=== PATIENT | female | born 1975 | race Caucasian/White ===

== ENCOUNTER → 2019-11-29 12:40 | Outpatient (CLI) | payer OTHER, SELFPAY ==
--- NOTE | ~2019-11-29 | XR_ITS ---
EXAMINATION: XR chest 2V EXAM DATE: 11/29/2019 12:54 INDICATION: Cough and wheezing. TECHNIQUE: Frontal and lateral projections of the chest obtained and reviewed. Comparison is made to prior examination from 08/02/2019. FINDINGS: There is moderate hyperinflation. Left apical surgical clips. The lungs are clear. There are no pleural effusions. The cardiomediastinal silhouette is within normal limits. There is no pne umothorax suspected. The bones and soft tissues are unremarkable. IMPRESSION: 1. No acute cardiopulmonary findings. 2. Hyperinflation. Reviewed, dictated and finalized at location B. CONTROLLER
== END ==
PROVIDERS: PCP Family Medicine; Visit Provider Family Medicine
DX: F17.200 Nicotine dependence, unspecified, uncomplicated (principal); R91.8 Other nonspecific abnormal finding of lung field
CPT/HCPCS: 71046

== ENCOUNTER 2019-12-20 10:31 | Outpatient (CLI) | payer OTHER, SELFPAY | END 2019-12-20 10:32 | disposition home or self-care (01) | LOC: ANHLAB 10:32 | PROVIDERS: PCP Family Medicine; Visit Provider Internal Medicine Hematology & Oncology | DX: D72.1 Eosinophilia (principal) | CPT/HCPCS: 36415; 82607; 83520; 88184 ==

== ENCOUNTER → 2020-02-20 12:07 | Outpatient (CLI) | payer OTHER, SELFPAY ==
--- NOTE | ~2020-02-20 | XR_ITS ---
EXAMINATION: XR chest 2V 02/20/2020 12:32 INDICATION: Cough. Nicotine dependence. PROCEDURE: 2 view chest COMPARISON: 11/29/2019 FINDINGS: The lungs are clear. The cardiomediastinal silhouette is within normal limits. There are no pleural effusions. There is no pneumothorax suspected. There are surgical changes consistent wit h left upper lobectomy. There are breast implants. IMPRESSION: 1: NO ACUTE CARDIOPULMONARY DISEASE. Reviewed, dictated and finalized at location A.
== END ==
PROVIDERS: PCP Family Medicine; Visit Provider Family Medicine
DX: R05 Cough (principal)
CPT/HCPCS: 71046

== ENCOUNTER 2020-09-25 11:35 | Outpatient (CLI) | payer OTHER, SELFPAY ==
[2020-09-28 07:12] LABS: Amphetamines NEGATIVE ng/mL (<500); Barbiturates NEGATIVE ng/mL (<300); Benzodiazepines NEGATIVE ng/mL (<100); Cocaine Metabolite NEGATIVE ng/mL (<150); Marijuana Metabolite NEGATIVE ng/mL (<20); Methadone Metabolite NEGATIVE ng/mL (<100); Opiates NEGATIVE ng/mL (<100); Oxidant NEGATIVE mcg/mL (<200); pH 7.4 (4.5-9.0)
== END 2020-09-25 11:36 | disposition home or self-care (01) ==
LOC: ANHBWCLAB 11:36
PROVIDERS: PCP Family Medicine; Visit Provider Family Medicine
DX: Z02.1 Encounter for pre-employment examination (principal)
CPT/HCPCS: 80299

== ENCOUNTER 2021-07-14 11:20 | Outpatient (CLI) | payer OTHER, SELFPAY ==
[2021-07-14 18:22] LABS: Hematocrit 38.7 % (37.0-47.0); Hemoglobin 12.6 g/dL (12.0-15.0); Mean Corpuscular HGB Conc 32.6 g/dl (32-36); Mean Corpuscular Hemoglobin 31.3 pg (26-34); Mean Platelet Volume 8.7 fl (7.4-10.4); Platelet Count Result 496 k/mm3 (150-375); Red Blood Count 4.03 M/mm3 (4.2-5.4); Red Cell Distribution Width 15.8 % (11.5-14.5); White Blood Count 8.1 K/mm3 (4.5-10.0)
[2021-07-14 18:32] LABS: Alanine Aminotransferase 16 U/L (4-35); Albumin Level 5.2 g/dL (3.5-5.1); Alkaline Phosphatase 77 U/L (38-126); Anion Gap 14 mmol/L (8-16); Aspartate Amino Transferase 24 U/L (14-36); Bilirubin,Total 0.2 mg/dL (0.2-1.3); Blood Urea Nitrogen 17 mg/dL (7-17); Calcium 10.3 mg/dL (8.4-10.2); Carbon Dioxide 19 mmol/L (22-30); Chloride 102 mmol/L (98-107); Cholesterol 186 mg/dL (0-200); Estimated Glomerular Filt Rate > 60; Glucose 100 mg/dL (65-110); HDL Direct 100 mg/dL; Potassium 4.6 mmol/L (3.4-5.0); Sodium 135 mmol/L (137-145); Triglycerides 61 mg/dL (<150)
[2021-07-14 18:43] LABS: LDL Cholesterol Direct 86 mg/dL
[2021-07-18 07:01] LABS: Progesterone 9.7 ng/mL (***)
[2021-07-21 01:35] LABS: Testosterone Free 1.1 pg/mL (0.1-6.4); Testosterone Total 18 ng/dL (2-45)
[2021-08-02 09:45] LABS: Estrogen 280.8
== END 2021-07-14 11:21 | disposition home or self-care (01) ==
LOC: ANHBWCLAB 11:22
PROVIDERS: PCP Family Medicine; Visit Provider Family Medicine
DX: F41.9 Anxiety disorder, unspecified (principal); F90.9 Attention-deficit hyperactivity disorder, unspecified type; G89.4 Chronic pain syndrome; Z00.00 Encounter for general adult medical examination without abnormal findings; B37.0 Candidal stomatitis; E83.42 Hypomagnesemia; F32.9 Major depressive disorder, single episode, unspecified; N93.9 Abnormal uterine and vaginal bleeding, unspecified
CPT/HCPCS: 36415; 80053; 80061; 82672; 83735; 84144; 84402; 84403; 84443; 85027

== ENCOUNTER 2021-08-30 07:59 | Outpatient (CLI) | payer OTHER, SELFPAY ==
[2021-08-30 19:16] LABS: Add Urine Microscopic? YES; Appearance Urine Cloudy (Clear); Bacteria Urine Trace /hpf; Bilirubin Urine Negative (Negative); Blood Urine Negative (Negative); Budding Yeast Urine Present /hpf; Color Urine Yellow (Yellow); Glucose Urine UA Negative (Negative); Ketones Urine Negative (Negative); Leukocyte Esterase Ur Negative LEU/UL (NEGATIVE); Nitrate Urine Negative (Negative); Protein Urine Negative (Negative); RBC Urine 0-2 /hpf (0-2); Squamous Epithelial Cell Urine Moderate /hpf (Few); Urobilinogen Urine Negative mg/dL (<2.0); WBC Clumps Urine Present /HPF; WBC Urine 0-3 /hpf (0-3)
== END 2021-08-30 08:00 | disposition home or self-care (01) ==
LOC: ANHBWCLAB 08:01
PROVIDERS: PCP Family Medicine; Visit Provider Family Medicine
DX: R10.9 Unspecified abdominal pain (principal)
CPT/HCPCS: 81001; 87491; 87591; 87661

== ENCOUNTER 2022-03-22 21:55 | Emergency (ER) | payer OTHER, SELFPAY ==
--- NOTE | ~2022-03-22 | XR_ITS ---
EXAMINATION: XR chest 1V portable Exam Date/Time: 03/22/2022 22:25 CDT HISTORY: tachycardia Comparison: 02/20/2020. RESULT: Lines, tubes, and devices: Suture material in the left apex. Lungs and pleura: Clear. Cardiomediastinal silhouette: Stable cardiomediastinal silhouette. Other: No acute osseous or upper abdominal finding. IMPRESSION: No acute cardiopulmonary process. Reviewed, dictated and finalized at location K.
[2022-03-22 22:00] VITALS: BP 135/90; PULSE 115; RESP 21; TEMP 37; O2SAT 99
--- NOTE | 2022-03-22 22:05 | ECG_ITS ---
Measurements Intervals [place] Rate: 103 P: 60 IN: 150 QRS: 14 QRSD: 90 T: 32 QT: 338 QTc: 443 Interpretive Statements SINUS TACHYCARDIA POSSIBLE RIGHT VENTRICULAR CONDUCTION DELAY [RSR (QR) IN V1/V2] ABNORMAL RHYTHM ECG NO PREVIOUS ECG AVAILABLE FOR COMPARISON Electronically Signed On 03-23-2022 7:26:28 CDT by Ezra Hernandez M.D.
[2022-03-22] MEDS: LORazepam INJ (*CRX) 2 MG/ML VIAL 1 MG IV PUSH (22:49)
[2022-03-22] MEDS: LACTATED RINGERS 1,000 ML 999 ML IV CONT (22:49)
[2022-03-22 23:01] LABS: Acetaminophen < 10 ug/mL (10-30); Ethanol < 10 mg/dL (<10); Salicylate < 1.0 mg/dL (2-20)
[2022-03-22 23:02] LABS: Anion Gap 10 mmol/L (8-16); Blood Urea Nitrogen 11 mg/dL (7-17); Calcium 9.8 mg/dL (8.4-10.2); Carbon Dioxide 24 mmol/L (22-30); Chloride 105 mmol/L (98-107); Estimated CRCL calculation 79 ml/min; Estimated Glomerular Filt Rate > 60; Glucose 129 mg/dL (65-110); Potassium 3.9 mmol/L (3.4-5.0); Sodium 139 mmol/L (137-145)
[2022-03-22 23:03] LABS: Basophils Absolute Auto 0.1 K/mm3 (0.0-0.1); Basophils Percent Auto 0.5 % (0.2-1.2); Eosinophils Percent Auto 0.4 % (0-4.4); Hemoglobin 12.6 g/dL (12.0-15.0); Immature Granulocyte Absolute 0.02 K/mm3 (0.00-0.031); Immature Granulocyte Percent A 0.2 % (0-0.5); Lymphocytes Percent Auto 17.4 % (18.3-44.2); Mean Corpuscular HGB Conc 33.2 g/dl (32-36); Mean Corpuscular Hemoglobin 31.6 pg (26-34); Mean Corpuscular Volume 95.2 fl (80-100); Mean Platelet Volume 8.4 fl (7.4-10.4); Monocytes Absolute Auto 1.2 K/mm3 (0.1-0.6); Monocytes Percent Auto 11.7 % (2.6-8.5); Neutrophils Absolute Auto 7.3 K/mm3 (1.3-6.7); Neutrophils Percent Auto 69.8 % (45.5-73.1); Platelet Count Result 530 k/mm3 (150-375); Red Blood Count 3.99 M/mm3 (4.2-5.4); Red Cell Distribution Width 14.9 % (11.5-14.5); White Blood Count 10.4 K/mm3 (4.5-10.0)
--- NOTE | 2022-03-22 23:13 | ED.ANXIETY ---
HPI - Anxiety General Chief Complaint: Anxiety Stated Complaint: SOB/PANIC ATTACK/ANXIETY Time Seen by Provider: 03/22/22 22:04 History of Present Illness HPI narrative: 46-year-old female presenting with what she feels is an anxiety attack that started about an hour ago, she states it feels like usual anxiety attack with some chest discomfort, difficulty breathing, and she feels trembley and weak all over, she states that there has been a lot of stuff going on recently in her life that has been stressing her out and making things worse, she is currently on sertraline and has been taking it for the most part, she states she did have a few drinks earlier, and denies any drug use other than DMT. Related Data Home Medications Medication Instructions Recorded Confirmed nicotine 21 mg/24 hr daily 1 patch transdermal DAILY 08/30/21 10/20/21 transdermal patch Allergies Allergy/AdvReac Type Severity Reaction Status Date / Time Penicillins Allergy Rash Verified 03/22/22 22:11 Review of Systems Review of Systems: CONST: No fever. HEENT: No sore throat C/V: Discomfort RESP: Difficulty breathing GI: Nausea : No dysuria. M/S: Tremors. SKIN: No rash. NEURO: [No headache or focal numbness or weakness] PSYCH: Anxiety PMFSH Past Medical History Medical History Anxiety Low vitamin D level Surgical History Surgical History History of lung surgery Family History Family History Grandparent Diabetes mellitus Family history of cardiovascular disease Family history of malignant neoplasm Mother Diabetes mellitus Sibling Family history of mental disorder Family history of gynecological problem Grandparent Cancer Social History Social History Smoking packs per day: 0.5 Smoking cigarettes per day: 10.0 Years smoked: 27 Smoking pack-years: 13.50 Smoking status: Current every day smoker Alcohol intake: current Drinks per week: 2 Substance use: former Substance use type: methamphetamine Exam Narrative: EXAMINATION OF ORGAN SYSTEMS/BODY AREAS: Constitutional: Vital signs per nursing GENERAL: Appears quite anxious HEAD: Normal with no signs of head trauma. EYES: EOMI, conjunctiva normal ENT: Hearing grossly intact LUNGS: Tachypneic HEART: Tachycardic ABD: No distention EXT: Normal range of motion SKIN: Abrasions on arms NEURO: [Alert and oriented x 3. No gross focal sensory or strength deficits.] PSYCH: Anxious, tearful affect Course Vital Signs Vital signs: Vital Signs Temperature 98.6 F 03/22/22 22:00 Pulse Rate 115 H 03/22/22 22:00 Respiratory Rate 21 H 03/22/22 22:00 Blood Pressure 135/90 03/22/22 22:00 Pulse Oximetry 99 03/22/22 22:00 Oxygen Delivery Room Air 03/22/22 22:00 Temperature 98.6 F 03/22/22 22:00 Pulse Rate 94 03/23/22 01:55 Respiratory Rate 16 03/23/22 01:55 Blood Pressure 108/65 03/23/22 01:55 Pulse Oximetry 95 03/23/22 01:55 Oxygen Delivery Room Air 03/22/22 22:00 MDM - Anxiety MDM Narrative Medical decision making narrative: 46-year-old female presenting with what she feels is an anxiety attack, vital signs notable for tachycardia, on exam the patient does appear quite anxious but clear to auscultation bilaterally, normal neurologic exam with anxious affect, I suspect likely anxiety attack, less likely any cardiac abnormality, less likely alcohol withdrawal without prior history of this, but I will give patient ativan and fluids and obtain an EKG and chest x-ray for screening. She tells me that she is having thoughts about hurting herself also with a plan for overdose, so I will obtain labs for medical clearance. EKG and chest xr normal. Labs notable for +amphetamines. Repeat vitals now normal. She is medically sta
[2022-03-22] MEDS: NICOTINE (*PBKC) 21 MG PATCH 1 PATCH TRANSDERM (23:17)
[2022-03-22] MEDS: LORazepam INJ (*CRX) 2 MG/ML VIAL IV PUSH (23:48)
[2022-03-22 23:59] VITALS: BP 128/77; PULSE 100; RESP 25; O2SAT 99
[2022-03-23] VITALS (7 sets, daily range): BP systolic 105–113; BP diastolic 61–77; PULSE 85–100; RESP 14–20; TEMP 36.1; O2SAT 95–99
[2022-03-23 00:39] LABS: Appearance Urine Clear (Clear); Bilirubin Urine Negative (Negative); Blood Urine Negative (Negative); Color Urine Yellow (Yellow); Glucose Urine UA Negative (Negative); Ketones Urine Trace mg/dL (Negative); Leukocyte Esterase Ur Negative LEU/UL (Negative); Nitrate Urine Negative (Negative); Protein Urine Negative (Negative); Specific Grav Ur 1.015 (1.001-1.035); Urobilinogen Urine 0.2 mg/dL (<2.0)
[2022-03-23 00:48] LABS: Barbiturate Screen Urine Negative (Negative); Benzodiazepines Screen Urine Negative (Negative)
[2022-03-23 00:50] LABS: Add Urine Microscopic? YES; Bacteria Urine 1+ /hpf; Mucus Urine Rare /lpf; RBC Urine 0-2 /hpf (0-2); Squamous Epithelial Cell Urine Rare /hpf (Few); Transitional Epi Cells Urine Rare /hpf (None Seen); WBC Urine 0-3 /hpf
[2022-03-23 00:53] LABS: Cannabinoid Screen Urine Negative (Negative); Cocaine Screen Urine Negative (Negative); Methadone Screen Urine Negative (Negative); Opiate Screen Urine Negative (Negative); Phencyclidine Screen Urine Negative (Negative)
[2022-03-23 01:19] LABS: Amphetamine Screen Urine Positive (Negative)
[2022-03-23 03:01] LABS: SARS-CoV-2 RNA PCR Negative
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
== END 2022-03-23 06:26 | disposition home or self-care (01) ==
PROVIDERS: Emergency Provider Emergency Medicine; PCP Family Medicine
DX: F41.9 Anxiety disorder, unspecified (principal); F19.90 Other psychoactive substance use, unspecified, uncomplicated; R45.851 Suicidal ideations; Z20.822 Contact with and (suspected) exposure to COVID-19; F17.210 Nicotine dependence, cigarettes, uncomplicated; R00.0 Tachycardia, unspecified; R94.31 Abnormal electrocardiogram [ECG] [EKG]
CPT/HCPCS: 36415; 51701; 71045; 80048; 80307; 81001; 81025; 84443; 85025; 93005; 96361; 96374; 96376; 99284; A9270; C9803; J2060; J7120; U0003; U0005

== ENCOUNTER 2022-09-12 18:25 | Emergency (ER) | payer OTHER, SELFPAY ==
--- NOTE | ~2022-09-12 | CT_ITS ---
EXAMINATION: CT abdomen pelvis wo con DATE: 09/12/2022 20:00 INDICATION: abd pain, dark stools TECHNIQUE: Computed tomography (CT) of the abdomen and pelvis was performed without intravenous contr ast. Automated exposure control and iterative reconstruction technique were employed. The dose-length product was 316.40 mGy-cm. COMPARISON: 01/16/2009, images only. FINDINGS: Lower thorax: Bilateral breast augmentation. Right basilar scar/atelectasis. Liver: Normal. Biliary/Gallbladder: Gallbladder is collapsed. No bile duct dilation. Pancreas: No mass or duct dilation. Spleen: Normal. Adrenals:No mass. Kidneys: No mass, stone, or hydronephrosis. GI tract: No small or large bowel dilation. Normal appendix. Mesentery/Peritoneum: No ascites, mass, or free air. Retroperitoneum: No mass. Pelvis: Uterine fibroids.. Soft Tissues: Soft tissues and body wall unremarkable. Bones: No acute osseous finding. IMPRESSION: No acute abdominopelvic process detected. Reviewed, dictated and finalized at location K. SECRETARY
[2022-09-12 18:37] VITALS: BP 120/68; PULSE 80; RESP 18; TEMP 36.2; O2SAT 100
[2022-09-12 18:40] VITALS: BP 120/60; PULSE 80; TEMP 36.2
[2022-09-12] MEDS: KETOROLAC 30 MG/ML VIAL (*BKC) IM (19:51)
[2022-09-12 20:05] LABS: Appearance Urine Clear (Clear); Bilirubin Urine Negative (Negative); Blood Urine Negative (Negative); Glucose Urine UA Negative (Negative); Ketones Urine Negative (Negative); Leukocyte Esterase Ur Negative (Negative); Nitrate Urine Negative (Negative); Protein Urine Negative (Negative); Specific Grav Ur <= 1.005 (1.010-1.020); Urobilinogen Urine 0.2 mg/dL (0.2-1.0)
[2022-09-12 20:06] LABS: Add Urine Microscopic? NO; Color Urine Light Yellow (Yellow)
[2022-09-12 20:17] LABS: Hematocrit 38.3 % (35.0-49.0); Hemoglobin 11.9 g/dL (12.0-15.0); Mean Corpuscular HGB Conc 31.1 g/dL (32.0-36.0); Mean Corpuscular Hemoglobin 30.7 pg (27.0-31.0); Mean Corpuscular Volume 98.7 fL (78.0-102.0); Mean Platelet Volume 8.1 fl (9.2-11.8); Platelet Count Result 439 K/mm3 (150-420); Red Blood Count 3.88 M/mm3 (4.20-5.40); Red Cell Distribution Width 14.6 % (11.6-14.4); White Blood Count 8.8 K/mm3 (4.8-10.8)
[2022-09-12 20:33] LABS: Alanine Aminotransferase 18 U/L (14-59); Albumin Level 4.1 g/dL (3.4-5.0); Alkaline Phosphatase 65 U/L (46-116); Anion Gap 6 mmol/L (8-16); Aspartate Amino Transferase 12 U/L (15-37); Bilirubin,Total 0.1 mg/dL (0.00-1.00); Blood Urea Nitrogen 10 mg/dL (7-18); Calcium 9.3 mg/dL (8.5-10.1); Carbon Dioxide 31 mmol/L (21-32); Chloride 105 mmol/L (98-108); Estimated CRCL calculation 84 ml/min; Estimated Glomerular Filt Rate > 60; Glucose 95 mg/dL (70-99); Lipase 212 U/L (73-393); Osmolality Calculated 293 mOsm/kg (285-295); Potassium 4.7 mmol/L (3.5-5.1); Sodium 142 mmol/L (136-145); Total Protein 7.5 g/dL (6.4-8.2)
[2022-09-12 20:52] LABS: Band Neutrophils Percent 0 % (0-6); Basophils Absolute Manual 0.08 K/mm3 (0-0.1); Basophils Percent Manual 1 % (0-1); Eosinophils Percent Manual 16 % (1-6); Lymphocytes Absolute Manual 2.28 K/mm3 (1.1-4.5); Lymphocytes Percent Manual 26 % (18-44); Monocytes Absolute Manual 0.88 K/mm3 (0.1-0.90); Monocytes Percent Manual 10 % (3-9); Neutrophils Absolute Manual 4.13 K/mm3 (1.7-7.2); Neutrophils Percent Manual 47 % (46-73); Platelet Estimate Adequate (Adequate)
[2022-09-12 23:28] VITALS: BP 106/67; PULSE 69; RESP 14; O2SAT 100
--- NOTE | 2022-09-12 23:49 | ED.GENADULT ---
HPI - General Adult General Chief complaint: Unspecified Stated complaint: possible uti and sinus infection Time Seen by Provider: 09/12/22 18:29 Source: patient Mode of arrival: ambulatory Limitations: no limitations History of Present Illness complaint: abdominal pain, nausea, diarrhea Onset (ago): day(s) (1) Location: abdomen Radiation: non-radiation Severity: mild Severity scale (1-10): 3 Quality: aching and dull Pain Consistency: constant Exacerbating factors: none Associated symptoms: nausea/vomiting Related Data Home Medications Medication Instructions Recorded Confirmed nicotine 21 mg/24 hr daily 1 patch transdermal DAILY 08/30/21 10/20/21 transdermal patch Allergies Allergy/AdvReac Type Severity Reaction Status Date / Time Penicillins Allergy Rash Verified 03/22/22 22:11 Review of Systems Review of Systems: All systems reviewed & are unremarkable except as noted in HPI and below Constitutional: Constitutional: Reports no additional constitutional complaints Eyes: Eyes: Reports no additional eye complaints ENT: Reports system reviewed and no additional complaints, except as documented Cardiovascular: Cardiovascular: Reports no additional cardiovascular complaints Respiratory: Respiratory: Reports no additional respiratory complaints Gastrointestinal: Gastrointestinal: Reports no additional gastrointestinal complaints Genitourinary: Genitourinary: Reports no additional female genitourinary complaints Musculoskeletal: Musculoskeletal: Reports no additional musculoskeletal complaints Integumentary/Breasts: Skin/Breast: Reports system reviewed and no additional complaints, except as docu Neurologic: Reports system reviewed and no additional complaints, except as documented Psychiatric: Psychiatric: Reports no additional psychiatric complaints Endocrine: Endocrine: Reports no additional endocrine complaints Hematologic/Lymphatic: Hematologic/Lymphatic: Reports no additional hematologic/lymphatic complaints Allergic/Immunologic: Allergic/Immunologic: Reports no additional allergic/immunologic complaints [facility] Past Medical History Medical History Anxiety Gastroenteritis Low vitamin D level Surgical History Surgical History History of lung surgery Family History Family History Grandparent Diabetes mellitus Family history of cardiovascular disease Family history of malignant neoplasm Mother Diabetes mellitus Sibling Family history of mental disorder Family history of gynecological problem Grandparent Cancer Social History Social History Smoking packs per day: 0.5 Smoking cigarettes per day: 10.0 Years smoked: 27 Smoking pack-years: 13.50 Smoking status: Current every day smoker Alcohol intake: current Drinks per week: 2 Substance use: former Substance use type: methamphetamine Exam Const: General: no acute distress and well nourished Nutritional Appearance: well nourished Orientation/consciousness: patient oriented x3 Limitations: no limitations HENMT: Head: normal to inspection Ears: external ears normal, TM's normal bilaterally and EAC's normal Face/Nose/Sinus: Normal external nose present, Normal nares present, normal facial exam and sinuses nontender Face and sinus: normal facial exam and sinuses nontender Mouth: Yes Normal oral and palatal mucosa present and Yes moist mucous membranes Teeth and gingiva: dentition normal Throat: posterior oropharynx normal Eyes: Conjunctivae: conjunctivae normal Pupils: Equal, round and reactive pupils present EOM: EOMs intact bilaterally Neck: Neck: normal visual inspection, no lymphadenopathy and no meningeal signs Chest: Chest palpation & inspection: normal inspection of the
[2022-09-13 00:08] VITALS: BP 108/71; PULSE 73; RESP 16; O2SAT 97
== END 2022-09-13 00:15 | disposition home or self-care (01) ==
PROVIDERS: Emergency Provider Emergency Medicine
DX: K52.9 Noninfective gastroenteritis and colitis, unspecified (principal); B34.9 Viral infection, unspecified
CPT/HCPCS: 36415; 74176; 80053; 81003; 83690; 85025; 96372; 99284; J1885

== ENCOUNTER 2023-04-07 01:30 | Emergency (ER) | payer OTHER, SELFPAY ==
--- NOTE | ~2023-04-07 | CT_ITS ---
CT of the Abdomen and Pelvis: Indication: Abdominal pain Technique: 2.5 mm axial scans were obtained through the abdomen and pelvis following intravenous adm inistration of 100 cc of Omnipaque 350. Dose reduction technique was used on this scan by utilizing a utomated exposure control and iterative reconstruction technique. The dose-length product (DLP) was 3 51.44 mGy-cm. COMPARISON: 09/12/2022 Findings: Scans through the lung bases are unremarkable. The liver, spleen, pancreas, gallbladder, adrenals and kidneys are within normal limits. No evidence of aortic aneurysm. No lymphadenopathy. No bowel obstruction or bowel wall thickening. There is no evidence to suggest acute appendicitis. Images through the pelvis were performed. Urinary bladder unremarkable. Enlarged, multi fibroid uteru s present, extending superiorly to the level of the umbilicus. No other adnexal mass seen. No ascites . Impression: Enlarged multi fibroid uterus, as detailed above. No acute abnormality evident otherwise. Reviewed, dictated and finalized at [facility]. Impression: Enlarged multi fibroid uterus, as detailed above. No acute abnormality evident otherwise.
[2023-04-07 01:37] VITALS: BP 137/82; PULSE 113; RESP 18; TEMP 37; O2SAT 100
[2023-04-07 01:41] LABS: Appearance Urine Clear (Clear); Bilirubin Urine Negative (Negative); Blood Urine Negative (Negative); Color Urine Light Yellow (Yellow); Glucose Urine UA Negative (Negative); Ketones Urine Negative (Negative); Leukocyte Esterase Ur Negative LEU/UL (Negative); Nitrate Urine Negative (Negative); Protein Urine Negative (Negative); Urobilinogen Urine 0.2 mg/dL (0.2-1.0)
[2023-04-07 01:50] LABS: Basophils Absolute Auto 0.03 K/mm3 (0.00-0.10); Basophils Percent Auto 0.2 % (0.0-1.0); Eosinophils Absolute Auto 0.08 K/mm3 (0.02-0.50); Eosinophils Percent Auto 0.6 % (1.0-6.0); Hematocrit 39.1 % (35.0-49.0); Hemoglobin 12.8 g/dL (12.0-15.0); Immature Granulocyte Absolute 0.06 K/mm3 (0.00-0.00); Immature Granulocyte Percent A 0.4 % (0.0-0.0); Lymphocytes Absolute Auto 1.64 K/mm3 (1.10-4.50); Lymphocytes Percent Auto 11.3 % (18.0-42.0); Mean Corpuscular HGB Conc 32.7 g/dL (32.0-36.0); Mean Corpuscular Hemoglobin 32.1 pg (27.0-31.0); Mean Platelet Volume 8.5 fl (9.2-11.8); Monocytes Absolute Auto 1.25 K/mm3 (0.10-0.90); Monocytes Percent Auto 8.6 % (2.0-11.0); Neutrophils Absolute Auto 11.5 K/mm3 (1.7-7.2); Neutrophils Percent Auto 78.9 % (50.0-70.0); Platelet Count Result 410 K/mm3 (150-420); Red Blood Count 3.99 M/mm3 (4.20-5.40); Red Cell Distribution Width 13.2 % (11.6-14.4); White Blood Count 14.5 K/mm3 (4.8-10.8)
[2023-04-07 01:50] LABS: Add Urine Microscopic? NO
[2023-04-07 02:05] LABS: Alanine Aminotransferase 19 U/L (14-59); Albumin Level 4.1 g/dL (3.4-5.0); Alkaline Phosphatase 59 U/L (46-116); Anion Gap 12 mmol/L (8-16); Aspartate Amino Transferase 17 U/L (15-37); Bilirubin,Total 0.5 mg/dL (0.00-1.00); Blood Urea Nitrogen 10 mg/dL (7-18); Calcium 9.3 mg/dL (8.5-10.1); Carbon Dioxide 25 mmol/L (21-32); Chloride 97 mmol/L (98-108); Estimated Glomerular Filt Rate > 60; Glucose 145 mg/dL (70-99); Lipase 37 U/L (16-77); Osmolality Calculated 280 mOsm/kg (285-295); Partial Thromboplastin Time 27.2 SEC (23.90-30.70); Potassium 3.9 mmol/L (3.5-5.1); Prothrombin Time 10.5 Seconds (9.50-12.10); Sodium 134 mmol/L (136-145); Total Protein 7.2 g/dL (6.4-8.2)
[2023-04-07] MEDS: SODIUM CHLORIDE 0.9% IV 1,000 ML 999 ML IV CONT (02:08)
[2023-04-07] MEDS: ONDANSETRON INJ 4 MG/2 ML VIAL IV PUSH (02:08)
[2023-04-07] MEDS: KETOROLAC 30 MG/ML VIAL (*BKC) IV PUSH (02:08)
[2023-04-07 03:24] VITALS: BP 118/52; PULSE 89; RESP 18; O2SAT 98
--- NOTE | 2023-04-07 03:24 | ED.ABDPAIN ---
HPI - Abdominal Pain General Chief Complaint: Abdominal Pain Stated Complaint: Lower back pain Time Seen by Provider: 04/07/23 01:33 Source: patient Mode of arrival: ambulatory Limitations: no limitations History of Present Illness HPI narrative: this is 47-year-old female that presents with some mild abdominal discomfort with some no nausea vomiting no dysuria does have some flank discomfort left no uterine bleeding no fever chills does have a history of pancreatitis vitals are stable afebrile. MD elicited complaint: abdominal pain Severity: mild Quality: aching Related Data Home Medications Medication Instructions Recorded Confirmed nicotine 21 mg/24 hr daily 1 patch transdermal DAILY 08/30/21 10/20/21 transdermal patch Allergies Allergy/AdvReac Type Severity Reaction Status Date / Time Penicillins Allergy Rash Verified 03/22/22 22:11 Review of Systems Review of Systems: All systems reviewed & are unremarkable except as noted in HPI and below PMFSH Past Medical History Medical History Anxiety Gastroenteritis Low vitamin D level Surgical History Surgical History History of lung surgery Family History Family History Grandparent Diabetes mellitus Family history of cardiovascular disease Family history of malignant neoplasm Mother Diabetes mellitus Sibling Family history of mental disorder Family history of gynecological problem Grandparent Cancer Social History Social History Smoking packs per day: 0.5 Smoking cigarettes per day: 10.0 Years smoked: 27 Smoking pack-years: 13.50 Smoking status: Current every day smoker Alcohol intake: current Drinks per week: 2 Substance use: former Substance use type: methamphetamine Exam Const: General: healthy appearing Nutritional Appearance: well nourished Limitations: no limitations HENMT: Head: normal to inspection Neck: Neck: normal visual inspection Chest: Chest palpation & inspection: normal inspection of the chest Cardio: Rate: regular rate Rhythm: regular rhythm GI: GI Palp: Yes Soft to palpation Auscultation: normal bowel sounds Skin: General skin exam: normal color Rashes: no rashes Wounds: no wounds Neuro: Cranial nerves: Yes Nystagmus not present Extrem: General: normal to inspection Course Course Emergency Course: Labs reviewed with patient had a mildly elevated white cell count and had a CT scan performed which showed 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 Vital Signs Vital signs: Vital Signs Temperature 37.0 C 04/07/23 01:37 Pulse Rate 113 H 04/07/23 01:37 Respiratory Rate 18 04/07/23 01:37 Blood Pressure 137/82 04/07/23 01:37 Pulse Oximetry 100 04/07/23 01:37 Oxygen Delivery Room Air 04/07/23 01:37 Temperature 37.0 C 04/07/23 01:37 Pulse Rate 113 H 04/07/23 01:37 Respiratory Rate 18 04/07/23 01:37 Blood Pressure 137/82 04/07/23 01:37 Pulse Oximetry 100 04/07/23 01:37 Oxygen Delivery Room Air 04/07/23 01:37 MDM - Abdominal Pain Lab Data 04/07/23 01:47 04/07/23 01:47 Labs: Lab Results 04/07/23 04/07/23 Range/Units 01:38 01:47 WBC 14.5 H (4.8-10.8) K/mm3 RBC 3.99 L (4.20-5.40) M/mm3 Hgb 12.8 (12.0-15.0) g/dL Hct 39.1 (35.0-49.0) % MCV 98.0 (78.0-102.0) fL MCH 32.1 H (27.0-31.0) pg MCHC 32.7 (32.0-36.0) g/dL RDW 13.2 (11.6-14.4) % Plt Count 410 (150-420) K/mm3 MPV 8.5 L (9.2-11.8) fl Immature Gran % (Auto) 0.4 H (0.0-0.0) % Neut % (Auto) 78.9 H (50.0-70.0) % Lymph % (Auto) 11.3 L (18.0-42.0) % [place] % (Auto) 8.6 (2.0-11.0) % Eos % (Auto) 0.6 L (1.0-6.0) % Baso
[2023-04-07] MEDS: SULFAMETHOXAZOLE/TRIMETHOPRIM 800/160 MG DS TABLET 2 TAB PO (03:31)
[2023-04-07 03:36] VITALS: BP 120/71; PULSE 80; RESP 18; TEMP 36.6; O2SAT 97
[2023-04-07 04:48] LABS: Reflex Lactic Acid Yes or No Add Lactic
== END 2023-04-07 03:46 | disposition home or self-care (01) ==
PROVIDERS: Emergency Provider Emergency Medicine
DX: D25.9 Leiomyoma of uterus, unspecified (principal); F17.210 Nicotine dependence, cigarettes, uncomplicated
CPT/HCPCS: 36415; 74177; 80053; 81003; 83605; 83690; 85025; 85610; 85730; 96361; 96374; 96375; 99284; A9270; J1885; J2405; J7030; Q9967

== ENCOUNTER 2023-07-29 10:45 | Emergency (ER) | payer OTHER, SELFPAY ==
[2023-07-29 10:58] VITALS: BP 131/74; PULSE 101; RESP 18; TEMP 36.4; O2SAT 100
--- NOTE | 2023-07-29 11:04 | ED.SKABFB ---
HPI - Skin/Abscess/Foreign Bdy General Chief complaint: Skin/Abscess/Foreign Body Stated complaint: Rash Time Seen by Provider: 07/29/23 11:04 Source: patient Mode of arrival: ambulatory Limitations: no limitations History of Present Illness HPI narrative: 48 yo F presents with multiple bug bites. Pt states that she is homeless and often sleeps in her car. The last 2 nights has slept in a recliner at friends house. Pt reports woke up this AM with multiple bites and itching. All systems reviewed and negative except as noted above. Related Data Allergies Allergy/AdvReac Type Severity Reaction Status Date / Time Penicillins Allergy Rash Verified 07/29/23 11:13 Review of Systems Review of Systems: CONSTITUTIONAL: Denies fever, chills, or sweats. EYES: Denies visual changes, redness, or discharge. ENT: Denies rhinorrhea, congestion, sore throat, or otalgia. CARDIOVASCULAR: Denies chest pain, palpitations, or edema. RESPIRATORY: Denies cough or dyspnea. GASTROINTESTINAL: Denies abdominal pain, nausea, vomiting, or diarrhea. GENITOURINARY: Denies dysuria or hematuria. SKIN: reports bug bites and itching MUSCULOSKELETAL: Denies back pain, joint pain, or myalgia. NEUROLOGIC: Denies headache, numbness, or weakness. PSYCHIATRIC: Denies anxiety or depression. All other systems reviewed are negative, except as documented in HPI. [facility] Past Medical History Medical History Anxiety Gastroenteritis Low vitamin D level Surgical History Surgical History History of lung surgery Family History Family History Grandparent Diabetes mellitus Family history of cardiovascular disease Family history of malignant neoplasm Mother Diabetes mellitus Sibling Family history of mental disorder Family history of gynecological problem Grandparent Cancer Social History Social History Smoking packs per day: 0.5 Smoking cigarettes per day: 10.0 Years smoked: 27 Smoking pack-years: 13.50 Smoking status: Current every day smoker Alcohol intake: current Drinks per week: 2 Substance use: former Substance use type: methamphetamine Comments At time of signature, agree with nursing past medical, surgical, social and family history. There is no relevant family history pertinent to the presenting complaint. Exam Narrative: GENERAL: This is a well-nourished, well-developed patient, in no apparent distress. HEAD: normocephalic, atraumatic. EYES: PERRL. Sclera clear/white. Vision is grossly intact. EARS: External ears normal NOSE: External nose normal NECK: Neck supple, non-tender without lymphadenopathy, masses or thyromegaly. CARDIOVASCULAR: Regular rate and rhythm without murmurs, gallops, or rubs. RESPIRATORY: Clear to auscultation. Breath sounds equal bilaterally. No wheezes, rales, or rhonchi. SKIN: warm, Dry, intact , good texture and turgor. erythematous vesicular/blister like lesions to bilateral arms and hands. erythematous papular bites to hips/buttock, bilateral thighs NEURO: awake, alert, and oriented to person, place and time. There were no obvious focal neurologic abnormalities. EXTREMITIES: No joint tenderness, effusion, or edema noted. Course Course Level of Care: Express Care Visit Vital Signs Vital signs: Vital Signs Temperature 36.4 C L 07/29/23 10:58 Pulse Rate 101 H 07/29/23 10:58 Respiratory Rate 18 07/29/23 10:58 Blood Pressure 131/74 07/29/23 10:58 Pulse Oximetry 100 07/29/23 10:58 Oxygen Delivery Room Air 07/29/23 10:58 Temperature 36.4 C L 07/29/23 10:58 Pulse Rate 101 H 07/29/23 10:58 Respiratory Rate 18 07/29/23 10:58 Blood Pressure 131/74 07/29/23 10:58 Pulse Oximetry 100 07/29/23 10:58 Oxygen Delivery Room Air 1
== END 2023-07-29 11:25 | disposition home or self-care (01) ==
PROVIDERS: Emergency Provider Nurse Practitioner Family
DX: S40.862A Insect bite (nonvenomous) of left upper arm, initial encounter (principal); S40.861A Insect bite (nonvenomous) of right upper arm, initial encounter; S60.562A Insect bite (nonvenomous) of left hand, initial encounter; S60.561A Insect bite (nonvenomous) of right hand, initial encounter; S70.262A Insect bite (nonvenomous), left hip, initial encounter; S70.261A Insect bite (nonvenomous), right hip, initial encounter; S30.860A Insect bite (nonvenomous) of lower back and pelvis, initial encounter; S70.362A Insect bite (nonvenomous), left thigh, initial encounter; S70.361A Insect bite (nonvenomous), right thigh, initial encounter; W57.XXXA Bitten or stung by nonvenomous insect and other nonvenomous arthropods, initial encounter; F17.210 Nicotine dependence, cigarettes, uncomplicated; F41.9 Anxiety disorder, unspecified
CPT/HCPCS: 99213; G0463

== ENCOUNTER 2023-09-05 08:45 | Outpatient (RCR) | payer OTHER, SELFPAY ==
--- NOTE | 2023-09-05 14:27 | OPREHPOC ---
Outpatient Therapy Plan of Care This is a Multidisciplinary Plan of Care that may contain components documented by all disciplines (PT, OT, and ST.) PT Problem 1 PT Problem #1 Knowledge Deficit PT Goal 1 Goal Patient to demonstrate independence with HEP Target Visit 4 PT Problem 2 PT Problem #2 Pain PT Goal 1 Goal 1. Patient to report highest pain at 2/10 2. Patient to demonstrate full lumbar ROM with no increase in back pain to bead picker objects from floor Target Visit 8 PT Problem 3 PT Problem #3 Impaired Strength PT Goal 1 Goal Patient to demonstrate 5/5 B LE and cores strength to return to prolonged ambulation at PLOF Target Visit 8 PT Problem 4 PT Problem #4 Impaired Functional Mobil PT Goal 1 Goal 1. Patient to report ability to cook a meal with no increase in back pain 2. Patient to report ability to sit for >30 minutes with no increase in pain Target Visit 8
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
== END 2023-09-05 13:43 | disposition home or self-care (01) ==
LOC: CHSPT 08:45
PROVIDERS: PCP Family Medicine; Visit Provider Family Medicine
DX: M41.9 Scoliosis, unspecified (principal)
CPT/HCPCS: 97014; 97110; 97161; 97165; G0283